=== PATIENT | female | born 1970 | race Caucasian/White ===

== ENCOUNTER 2017-02-09 14:40 | Emergency (ER) | payer MEDICAID ==
[2010-09-12 08:59] VITALS: BMI 24.2
[2017-02-09 15:13] LABS: APPEARANCE CLEAR (CLEAR); COLOR STRAW (YELLOW)
[2017-02-09 15:14] LABS: BILIRUBIN NEGATIVE (NEGATIVE); GLUCOSE NEGATIVE (NEGATIVE); KETONE NEGATIVE (NEGATIVE); LEUKOCYTE ESTERASE NEGATIVE (NEGATIVE); NITRITE NEGATIVE (NEGATIVE); PROTEIN NEGATIVE (NEGATIVE); UROBILINOGEN NORMAL (NORMAL)
[2017-02-09 15:57] LABS: BASOPHILS 0.5 % (0.0-2.0); EOSINOPHILS 5.1 % (0-7); HEMATOCRIT 38.5 % (36.0-48.0); HEMOGLOBIN 12.4 g/dL (12-16); IMMATURE GRANULOCYTES 0.3 % (0-5); LYMPHOCYTES 28.7 % (15-50); MCH 26.4 pg (26.0-34.0); MCHC 32.2 g/dL (31.0-37.0); MCV 82.1 fL (80.0-100.0); MEAN PLATELET VOLUME 11.5 fL (7.4-10.4); MONOCYTES 6.6 % (2-11); NEUTROPHILS 58.8 % (40-80); PLATELET COUNT 188 10x3/uL (130-400); RBC 4.69 10x6/uL (4.00-5.40); RDW 13.2 % (11.5-14.5); WBC 9.6 10x3/uL (4.8-10.8)
[2017-02-09 16:22] LABS: ALBUMIN 3.6 g/dL (3.4-5.0); ALKALINE PHOSPHATASE 77 U/L (46-116); ALT (SGPT) 61 U/L (10-68); BILIRUBIN - TOTAL 0.29 mg/dL (0.2-1.3); CALC OSMOLALITY 279 mosm/kg (275-300); CALCIUM 8.5 mg/dL (8.5-10.1); CARBON DIOXIDE 27.5 mmol/L (21.0-32.0); CHLORIDE - SERUM 105 mmol/L (98-107); CREATININE - SERUM 0.8 mg/dL (0.6-1.3); POTASSIUM - SERUM 3.8 mmol/L (3.5-5.1); PROTEIN - SERUM 6.8 g/dL (6.4-8.2); SODIUM 142 mmol/L (136-145); UREA NITROGEN 7 mg/dL (7-18); eGFR NON AFRICAN AMERICAN 81 mL/min (90-120)
[2017-02-09 16:24] LABS: GLUCOSE 72 mg/dL (74-106)
== END 2017-02-09 18:23 | disposition home or self-care (01) ==
LOC: D.ER 14:40
PROVIDERS: Emergency Medicine; Physician Assistant Medical
DX: D25.9 Leiomyoma of uterus, unspecified (principal); N83.202 Unspecified ovarian cyst, left side; F31.9 Bipolar disorder, unspecified; F20.9 Schizophrenia, unspecified

== ENCOUNTER 2017-04-13 18:24 | Emergency (ER) | payer SELFPAY ==
[2010-09-12 08:59] VITALS: BMI 24.2
== END 2017-04-13 22:10 | disposition home or self-care (01) ==
LOC: D.ER 18:24
DX: G43.909 Migraine, unspecified, not intractable, without status migrainosus (principal); F31.89 Other bipolar disorder; F20.9 Schizophrenia, unspecified; D25.9 Leiomyoma of uterus, unspecified

== ENCOUNTER → 2017-05-19 14:00 | Outpatient (CLI) | payer MEDICAID ==
[2010-09-12 08:59] VITALS: BMI 24.2
== END | disposition home or self-care (01) ==
LOC: D.MRI 14:00
DX: C72.1 Malignant neoplasm of cauda equina (principal)

== ENCOUNTER 2017-08-24 22:04 | Emergency (ER) | payer MEDICAID ==
[2010-09-12 08:59] VITALS: BMI 24.2
== END 2017-08-25 00:09 | disposition home or self-care (01) ==
LOC: D.ER 22:04
DX: R51 Headache (principal)

== ENCOUNTER 2018-03-01 21:23 | Emergency (ER) | payer MEDICAID ==
[2010-09-12 08:59] VITALS: BMI 24.2
== END 2018-03-01 23:59 | disposition home or self-care (01) ==
LOC: D.ER 21:23
DX: G43.909 Migraine, unspecified, not intractable, without status migrainosus (principal); F17.200 Nicotine dependence, unspecified, uncomplicated

== ENCOUNTER 2018-08-11 21:55 | Emergency (ER) | payer MEDICAID ==
[~2018-08-11] VITALS: Ht 167.6 cm; Wt 75.9 kg
[2018-08-11 22:13] VITALS: Ht 167.6 cm; Wt 75.9 kg
[2018-08-11] MEDS ORDERED: VISTARIL25 MG (22:15)
[2018-08-11] MEDS ORDERED: CYMBALTA20 MG (22:15)
[2018-08-11] MEDS ORDERED: TOPAMAX15 MG (22:15)
[2018-08-11] MEDS ORDERED: BACLOFEN10 MG (22:16)
[2018-08-11] MEDS ORDERED: HYDROCODON-ACET15 ML (22:16)
[2018-08-12 01:55] VITALS: BP 110/60
== END 2018-08-12 01:55 | disposition home or self-care (01) ==
LOC: D.ER 21:55
DX: G43.909 Migraine, unspecified, not intractable, without status migrainosus (principal); F90.9 Attention-deficit hyperactivity disorder, unspecified type; F31.9 Bipolar disorder, unspecified; F17.200 Nicotine dependence, unspecified, uncomplicated

== ENCOUNTER 2018-10-10 22:00 | Emergency (ER) | payer MEDICAID ==
[~2018-10-10] VITALS: Ht 167.6 cm; Wt 72.6 kg
[~2018-10-10 22:00] MED LIST: BACLOFEN10 MG; CYMBALTA20 MG; HYDROCODON-ACET15 ML; TOPAMAX15 MG; VISTARIL25 MG
[2018-10-10 22:06] VITALS: Ht 167.6 cm; Wt 72.6 kg
[2018-10-10] MEDS ORDERED: REXULTI1 MG PO (22:08)
[2018-10-10] MEDS ORDERED: TRAZODONE HCL150 MG PO (22:09)
[2018-10-11] MEDS ORDERED: STADOL NASAL S2.5 ML NASAL ×2 (00:24→00:25)
[2018-10-11] MEDS ORDERED: IMITREX50 MG PO (00:25)
[2018-10-11 01:00] VITALS: BP 133/64
== END 2018-10-11 01:00 | disposition home or self-care (01) ==
LOC: D.ER 22:00
DX: G43.109 Migraine with aura, not intractable, without status migrainosus (principal); F17.200 Nicotine dependence, unspecified, uncomplicated

== ENCOUNTER 2019-05-01 19:31 | Emergency (ER) | payer MEDICAID ==
[~2019-05-01] VITALS: Ht 167.6 cm; Wt 71.7 kg
[2019-05-01 19:46] VITALS: Ht 167.6 cm; Wt 71.7 kg
[2019-05-01 20:11] LABS: BASOPHILS 0.4 % (0-2); EOSINOPHILS 1.3 % (0-7); HEMATOCRIT 38.1 % (36.0-48.0); HEMOGLOBIN 12.5 g/dL (12-16); IMMATURE GRANULOCYTES 0.2 % (0-5); LYMPHOCYTES 28.7 % (15-50); MCH 25.8 pg (26.0-34.0); MCHC 32.8 g/dL (31.0-37.0); MCV 78.7 fL (80.0-100.0); MEAN PLATELET VOLUME 10.7 fL (7.4-10.4); MONOCYTES 6.5 % (2-11); NEUTROPHILS 62.9 % (40-80); RBC 4.84 10x6/uL (4.00-5.40); RDW 13.4 % (11.5-14.5); WBC 12.7 10x3/uL (4.8-10.8)
[2019-05-01 20:13] LABS: APPEARANCE CLEAR (CLEAR); COLOR YELLOW (YELLOW)
[2019-05-01 20:14] LABS: BILIRUBIN NEGATIVE (NEGATIVE); GLUCOSE NEGATIVE (NEGATIVE); KETONE NEGATIVE (NEGATIVE); NITRITE NEGATIVE (NEGATIVE); PLATELET COUNT 250 10x3/uL (130-400); PROTEIN TRACE mg/dL (NEGATIVE); UROBILINOGEN NORMAL (NORMAL)
[2019-05-01 20:15] LABS: HCG URINE NEGATIVE (NEGATIVE)
[2019-05-01 20:26] LABS: ALBUMIN 3.7 g/dL (3.4-5.0); ALKALINE PHOSPHATASE 105 U/L (46-116); ALT (SGPT) 21 U/L (10-68); BILIRUBIN - TOTAL 0.27 mg/dL (0.2-1.3); CALC OSMOLALITY 276 mosm/kg (275-300); CALCIUM 9.1 mg/dL (8.5-10.1); CARBON DIOXIDE 27.7 mmol/L (21.0-32.0); CHLORIDE - SERUM 107 mmol/L (98-107); CREATININE - SERUM 1.1 mg/dL (0.6-1.3); GLUCOSE 105 mg/dL (74-106); POTASSIUM - SERUM 3.5 mmol/L (3.5-5.1); PROTEIN - SERUM 7.5 g/dL (6.4-8.2); SODIUM 138 mmol/L (136-145); UREA NITROGEN 16 mg/dL (7-18); eGFR NON AFRICAN AMERICAN 56 mL/min (90-120)
[2019-05-01 20:29] LABS: LIPASE 123 U/L (73-393); TROPONIN-I < 0.017 ng/mL (0.000-0.060)
[2019-05-01 22:59] VITALS: BP 115/74
== END 2019-05-01 22:59 | disposition home or self-care (01) ==
LOC: D.ER 19:31
PROVIDERS: Family Medicine
DX: R10.9 Unspecified abdominal pain (principal)

== ENCOUNTER → 2019-05-01 | Emergency (ER) | payer MEDICAID ==
[2018-10-10 22:06] VITALS: BMI 27.0
[~2019-05-01] MED LIST changes: +IMITREX50 MG PO; +REXULTI1 MG PO; +STADOL NASAL S2.5 ML NASAL; +TRAZODONE HCL150 MG PO
== END | disposition home or self-care (01) ==
LOC: D.ER 19:35
DX: R10.9 Unspecified abdominal pain (principal)

== ENCOUNTER 2019-05-14 14:49 | Emergency (ER) | payer MEDICAID ==
[~2019-05-14] VITALS: Ht 167.6 cm; Wt 75.0 kg
[2019-05-14 15:09] VITALS: Ht 167.6 cm; Wt 75.0 kg
--- NOTE | 2019-05-14 17:58 | NUR ---
DR. BUENO NOTIFIED AND REVIEWED PT'S BEHAVIOR AND ASSESSMENT RESULTS. PT IS A LOW RISK PER DR BUENO. DR. BUENO STATED TO GIVE RESOURCES TO PATIENT AT TIME OF DISCHARGE. NO FURTHER ORDERS AT THIS TIME. RESOURCES REVIEWED WITH PT AND SHE VERBALIZED UNDERSTANDING.
[2019-05-14 18:33] LABS: BASOPHILS 0.7 % (0-2); EOSINOPHILS 5.7 % (0-7); HEMATOCRIT 38.5 % (36.0-48.0); HEMOGLOBIN 12.6 g/dL (12-16); IMMATURE GRANULOCYTES 0.1 % (0-5); LYMPHOCYTES 26.1 % (15-50); MCHC 32.7 g/dL (31.0-37.0); MCV 79.5 fL (80.0-100.0); MEAN PLATELET VOLUME 9.9 fL (7.4-10.4); MONOCYTES 6.4 % (2-11); PLATELET COUNT 207 10x3/uL (130-400); RBC 4.84 10x6/uL (4.00-5.40); RDW 13.5 % (11.5-14.5); WBC 9.7 10x3/uL (4.8-10.8)
[2019-05-14] MEDS ORDERED: IMITREX50 MG PO (18:39)
[2019-05-14 18:53] LABS: ALBUMIN 3.8 g/dL (3.4-5.0); BILIRUBIN - TOTAL 0.28 mg/dL (0.2-1.3); CALCIUM 9.2 mg/dL (8.5-10.1); CREATININE - SERUM 1.2 mg/dL (0.6-1.3); PROTEIN - SERUM 7.2 g/dL (6.4-8.2)
[2019-05-14 19:03] LABS: THYROID STIMULATING HORMONE 2.5 uIU/mL (0.36-3.74)
[2019-05-14 20:26] VITALS: BP 91/65
== END 2019-05-14 20:26 | disposition home or self-care (01) ==
LOC: D.ER 14:49
PROVIDERS: Emergency Medicine
DX: G43.909 Migraine, unspecified, not intractable, without status migrainosus (principal)

== ENCOUNTER → 2019-08-23 14:05 | Outpatient (CLI) | payer MEDICAID ==
[2019-05-14 15:09] VITALS: BMI 26.7
== END | disposition home or self-care (01) ==
LOC: D.US 14:05
PROVIDERS: ATTEND Family Medicine
DX: E04.9 Nontoxic goiter, unspecified (principal)

== ENCOUNTER 2019-11-06 13:40 | Emergency (ER) | payer MEDICAID ==
[2019-11-06 13:55] VITALS: Ht 167.6 cm
[2019-11-06 15:44] VITALS: BP 104/88
== END 2019-11-06 15:48 | disposition home or self-care (01) ==
LOC: D.ER 13:40
DX: G43.909 Migraine, unspecified, not intractable, without status migrainosus (principal); J45.909 Unspecified asthma, uncomplicated; G51.0 Bell's palsy

== ENCOUNTER 2020-04-13 10:07 | Emergency (ER) | payer MEDICAID ==
[~2020-04-13] VITALS: Ht 167.6 cm; Wt 82.3 kg
[2020-04-13 10:11] VITALS: Ht 167.6 cm; Wt 82.3 kg
[2020-04-13] MEDS ORDERED: VISTARIL50 MG PO (13:01)
[2020-04-13 13:18] VITALS: BP 114/86
== END 2020-04-13 13:18 | disposition home or self-care (01) ==
LOC: D.ER 10:07
DX: F41.9 Anxiety disorder, unspecified (principal); F41.0 Panic disorder [episodic paroxysmal anxiety]; J45.909 Unspecified asthma, uncomplicated; F31.9 Bipolar disorder, unspecified

== ENCOUNTER 2021-03-17 14:23 | Emergency (ER) | payer MEDICAID ==
[~2021-03-17] VITALS: Ht 167.6 cm; Wt 76.4 kg
[~2021-03-17 14:23] MED LIST changes: +VISTARIL50 MG PO
[2021-03-17 14:32] VITALS: BP 102/63; Ht 167.6 cm; Wt 76.4 kg
[2021-03-17] MEDS ORDERED: AIMOVIG (14:38)
== END 2021-03-17 15:33 | disposition home or self-care (01) ==
LOC: D.ER 14:23
DX: G43.909 Migraine, unspecified, not intractable, without status migrainosus (principal); J45.909 Unspecified asthma, uncomplicated

== ENCOUNTER 2021-04-29 18:00 | Emergency (ER) | payer MEDICAID ==
[~2021-04-29] VITALS: Ht 167.6 cm; Wt 71.8 kg
[~2021-04-29 18:00] MED LIST changes: +AIMOVIG
[2021-04-29 18:04] VITALS: Ht 167.6 cm; Wt 71.8 kg
[2021-04-29 21:06] VITALS: BP 113/70
== END 2021-04-29 19:52 | disposition home or self-care (01) ==
LOC: D.ER 18:00
DX: G43.909 Migraine, unspecified, not intractable, without status migrainosus (principal)